=== PATIENT | female | born 1995 | race Caucasian/White ===

== ENCOUNTER 2017-06-28 11:06 | Emergency (ER) | payer MEDICARE ==
[2016-06-14 10:34] VITALS: BMI 29.6
[~2017-06-28 11:06] MED LIST: FERROUS SULFAT325 MG PO; IBUPROFEN600 MG PO; PERCOCET 10/3251 TA1 PO; PRENATAL COMPLE1 TAB PO; ZANTAC150 MG PO
== END 2017-06-28 12:35 | disposition home or self-care (01) ==
LOC: D.ER 11:06
DX: T22.10XA Burn of first degree of shoulder and upper limb, except wrist and hand, unspecified site, initial encounter (principal); T21.12XA Burn of first degree of abdominal wall, initial encounter; X12.XXXA Contact with other hot fluids, initial encounter; Y93.G3 Activity, cooking and baking; Y92.010 Kitchen of single-family (private) house as the place of occurrence of the external cause; F90.9 Attention-deficit hyperactivity disorder, unspecified type; Z86.59 Personal history of other mental and behavioral disorders

== ENCOUNTER 2021-01-18 21:40 | Emergency (ER) | payer MEDICAID ==
[~2021-01-18] VITALS: Ht 157.5 cm; Wt 75.0 kg
[2021-01-18 21:52] VITALS: BP 135/81; Ht 157.5 cm; Wt 75.0 kg
[2021-01-18 22:36] LABS: BASOPHILS 1.2 % (0-2); EOSINOPHILS 2.9 % (0-7); HEMATOCRIT 36.3 % (36.0-48.0); HEMOGLOBIN 11.3 g/dL (12-16); LYMPHOCYTES 26.1 % (15-50); MCH 22.4 pg (26.0-34.0); MCHC 31.2 g/dL (31.0-37.0); MCV 71.9 fL (80.0-100.0); MEAN PLATELET VOLUME 7.3 fL (7.4-10.4); MONOCYTES 8.9 % (2-11); NEUTROPHILS 60.9 % (40-80); RBC 5.06 10x6/uL (4.00-5.40); RDW 15.3 % (11.5-14.5); WBC 6.3 10x3/uL (4.8-10.8)
[2021-01-18 22:39] LABS: BILIRUBIN NEGATIVE (NEGATIVE); KETONE NEGATIVE mg/dL (< 1+); NITRITE NEGATIVE (NEGATIVE); SQUAMOUS EPITHELIAL 2 HPF (0-4); UROBILINOGEN NORMAL mg/dL (< 2); WHITE CELLS - URINE 1 HPF (0-4)
[2021-01-18 22:39] LABS: PLATELET COUNT 261 10x3/uL (130-400)
[2021-01-18 22:41] LABS: CALC OSMOLALITY 278 mosm/kg (275-300); CARBON DIOXIDE 26.5 mmol/L (21.0-32.0); CHLORIDE - SERUM 104 mmol/L (98-107); CREATININE - SERUM 0.6 mg/dL (0.6-1.3); GLUCOSE 111 mg/dL (74-106); POTASSIUM - SERUM 3.7 mmol/L (3.5-5.1); SODIUM 140 mmol/L (136-145); UREA NITROGEN 11 mg/dL (7-18); eGFR NON AFRICAN AMERICAN > 90 mL/min (90-120)
[2021-01-18 22:50] LABS: ALBUMIN 4.2 g/dL (3.4-5.0); ALKALINE PHOSPHATASE 201 U/L (30-120); ALT (SGPT) 36 U/L (10-68); AMYLASE - SERUM 61 U/L (25-115); BILIRUBIN - TOTAL 0.22 mg/dL (0.2-1.3); LIPASE 185 U/L (73-393); PROTEIN - SERUM 8.3 g/dL (6.4-8.2); TROPONIN-I < 0.017 ng/mL (0.000-0.060)
== END 2021-01-18 23:51 | disposition left against medical advice (07) ==
LOC: D.ER 21:40
PROVIDERS: Emergency Medicine
DX: R10.13 Epigastric pain (principal)